=== PATIENT | female | born 1980 | race Caucasian/White ===

== ENCOUNTER 2016-07-07 12:12 | Emergency (ER) | payer OTHER ==
--- NOTE | 2016-07-07 13:45 | Diagnostic Imaging Report ---
Cervical spine, limited Indication: Trauma Comparison: none Findings: There is reversal of the cervical lordosis. No evidence of an acute compression fracture or subluxation. Minimal degenerative changes are noted. The atlantodental articulation is preserved. No prevertebral soft tissue swelling. Impression: Reversal of the cervical lordosis which may be due to positioning versus muscle spasm. No evidence of an acute compression fracture or subluxation. Given history of trauma, if indicated, a follow-up CT cervical spine examination may be obtained for further assessment. In the setting of trauma, if clinical symptoms persist and there is continued concern for an occult fracture, follow up exams in 5-7 days is suggested.
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
== END 2016-07-07 14:00 | disposition home or self-care (01) ==
LOC: ER 12:12
DX: S39.012A Strain of muscle, fascia and tendon of lower back, initial encounter (principal); S16.1XXA Strain of muscle, fascia and tendon at neck level, initial encounter; Z88.0 Allergy status to penicillin; V89.2XXA Person injured in unspecified motor-vehicle accident, traffic, initial encounter; Y93.89 Activity, other specified; Y92.488 Other paved roadways as the place of occurrence of the external cause; Y99.8 Other external cause status
CPT/HCPCS: 99285; 96372; 72040; 72100; 81025; J1885